=== PATIENT | female | born 1950 | race Caucasian/White ===

== ENCOUNTER 2020-04-04 14:21 | Inpatient (IN) | payer MEDICARE ==
[~2020-04-04] VITALS: Ht 152.4 cm; Wt 108.9 kg
[2020-04-13] VITALS (11 sets, daily range): BP systolic 99–157; BP diastolic 66–84; PULSE 67–90; TEMP 96.9–98
--- NOTE | 2020-04-13 06:48 | NUR ---
Patient ambulatory to room 2 accompanied by son and is awake and alert. Consents signed for exploratomy laparotomy and right nephrectomy. Patient states that she nervous about the surgery. Assisted patient with changing clothes.
[2020-04-13 07:44] LABS: BASO % 0.5 % (0.0-2.0); EOS # 0.1 (0.0-0.7); EOS % 1.8 % (0-4.0); GRAN % 65.4 % (42.2-75.2); HEMATOCRIT 38.5 % (37.0-47.0); HEMOGLOBIN 12.6 g/dl (12.5-16.0); LYMPH # 1.9 (1.2-3.4); LYMPH % 24.6 % (20.0-51.0); MEAN CELL VOLUME 87 fl (80.0-100.0); MEAN CORPUSCULAR HEMOGLOBIN 29 pg (27.0-31.0); MEAN CORPUSCULAR HGB CONC 33 g/dl (33.0-37.0); MEAN PLATELET VOLUME 9.9 fl (7.4-10.4); MONO # 0.6 (0.1-0.6); MONO % 7.6 % (1.7-9.3); PLATELET COUNT 294 K/mm3 (130-400); RED BLOOD COUNT 4.42 M/mm3 (4.10-5.30); REDCELL DISTRIBUTION WIDTH-CV 13.2 % (11.5-14.5)
--- NOTE | 2020-04-13 07:51 | NUR ---
Order for Valium 5mg po obtained and given for continued complaints of feeling nervous and anxious. Tearful. Son in room and talks with son. Siderails up x2 and call light in reach.
[2020-04-13 07:54] LABS: ALBUMIN 4.3 gm/dL (3.5-5.0); BILIRUBIN,TOTAL 0.9 mg/dL (0.0-1.0); CALCIUM 9.5 mg/dL (8.4-10.2); CREATININE, serum 1.2 (0.52-1.25); POTASSIUM 3.8 mmol/L (3.4-5.0); TOTAL PROTEIN 8.3 gm/dL (6.4-8.2)
[2020-04-13] MEDS ORDERED: PRINZIDE 25 MG-1 TAB PO (08:44)
[2020-04-13] MEDS ORDERED: ZOCOR 20MG20 MG PO (08:44)
[2020-04-13] MEDS ORDERED: K-DUR 10 MEQ T10 MEQ PO (08:45)
[2020-04-13] MEDS ORDERED: LASIX 40MG TABL40 MG PO (08:46)
[2020-04-13] MEDS ORDERED: ATARAX 25MG25 MG/TAB PO (08:47)
[2020-04-13] MEDS ORDERED: NORCO 325 MG-51 TAB PO (08:48)
[2020-04-13] MEDS ORDERED: NITROSTAT0.4 MG/TAB SL (08:49)
[2020-04-13] MEDS ORDERED: ASPIRIN 81M81 MG/TA2 PO (15:36)
--- NOTE | 2020-04-13 15:41 | NUR ---
Patient received post op. Report from Manasa. Patient drowsy. Her son visited, but has left for the day. called & update given & orders clarified. Vss on O2. Ivf per orders to Rfa. Colmenares to DD, yellow clear output. Perry drain x2 marked 1 & 2. Abdominal binder on. Midline incisions with aquacel dressing intact. Ice chips & water provided, reports dry mouth, no nausea complaints. Scds BLE.
--- NOTE | 2020-04-13 16:12 | NUR ---
Patient sleeping soundly. Vitals stable on O2. Continue to closely monitor
--- NOTE | 2020-04-13 16:48 | NUR ---
called & update given. We discussed marginal urine output
--- NOTE | 2020-04-13 19:20 | NUR ---
Patient resting in bed. She is reporting increased pain. 09/20. Bedside report to cecily Thacker to resume cares. He is giving Morphine for pain, medication was explained to pain. Patient not wanting to take pills at this time, she is nervous about nausea. Vitals remains stable. Bp elevated with pain. Patient tolerating ice chips, not interest in clear liquid. Colmenares to DD 20ml urine output. Colmenares was irrigated per , no issue with irrigation, flows easy. Bolus infusing per orders. JALEN drain to compression, documented on flowsheet. Abdomen remains rounded. midline aquacell insision dressing intact. Abd binder intact. Scds ble.
[2020-04-14 00:52] VITALS: BP 136/68; PULSE 77; TEMP 97.5
--- NOTE | 2020-04-14 02:00 | NUR ---
MD Marija called and notified continued oliguria. Urine output since 1930: 70mL yellow and concentrated. Orders recieved
--- NOTE | 2020-04-14 04:50 | NUR ---
MD Marija notified urine output since fluid bolus: 25mL. Pt reassessed, does not appear to be fluid overloaded, minimal edema, lungs clear with now crackles. Reported to MD Marija documented I&O since arrival to unit Total Intake: 4,120mL - Urine Output: 55mL No new IV fluid orders recieved, but MD Marija ordered Hemoglobin and Hemotocrit STAT Lab called to perform scheduled morning labs STAT
[2020-04-14 05:14] LABS: HEMATOCRIT 37.2 % (37.0-47.0)
[2020-04-14 05:20] VITALS: BP 121/57; PULSE 80; TEMP 97.6
--- NOTE | 2020-04-14 05:20 | NUR ---
Stable hemoglobin reported to MD Marija. No new orders recieved. MD Marija will call MD Naida to come in early to assess pt, thinks pt might be fluid volume depleted but wanting MD Naida to assess before administering more fluids. Pt asymptomatic
[2020-04-14 05:28] LABS: CALCIUM 8.1 mg/dL (8.4-10.2); CREATININE, serum 2.18 (0.52-1.25); MAGNESIUM 1.8 mg/dL (1.6-2.3); PHOSPHOROUS 6.4 mg/dL (2.5-4.5); POTASSIUM 4.7 mmol/L (3.4-5.0)
[2020-04-14 07:48] VITALS: BP 127/61; PULSE 78; TEMP 97.9
[2020-04-14 12:06] VITALS: BP 139/69; PULSE 87; TEMP 97.9
--- NOTE | 2020-04-14 12:17 | NUR ---
First visit from the match up worker. No needs right now.
--- NOTE | 2020-04-14 15:39 | NUR ---
Orthopedics Nurse met with patient and patient's son, Adan (ph#[phone]) to discuss discharge planning. Patient lives in [place], [place] with her son, Oscar who is disabled. Patient sees Dr. Concepcion for primary care and obtains medications from [facility] in [place] with no difficulties. Patient states she uses a cane at home and is normally independent with ADLS. Patient does not have Advance Directives at this time but states she is going to contact an business attorney soon to complete this. SW offered to assist with DPOA-HC during this stay, however patient declined. Patient plans to return home upon discharge with her son, Adan providing transportation. Adan is from [place] but has plans to stay with patient upon discharge to provide assistance. Adan advised he has to return to [place] for Saturday and Saturday to chart picker his daughter, who is flying in from [place] and he won't be back here in [place] until Saturday. SW asked patient who would take her home over the weekend if she discharged and patient states she won't discharge over the weekend per Dr. Lazcano. Patient has a nephrology consult ordered. SW contacted Dr. Lazcano's RN, Miki and confirmed patient will not discharge over the weekend. SW will continue to follow.
[2020-04-14 18:14] VITALS: BP 112/63; PULSE 80; TEMP 97.5
[2020-04-14 19:19] VITALS: BP 126/44; PULSE 81; TEMP 97.7
--- NOTE | 2020-04-14 19:50 | NUR ---
RECEIVED CHANGE OF SHIFT REPORT FROM DAY SHIFT NURSERADHA RN
--- NOTE | 2020-04-14 20:00 | NUR ---
PATIENT DENIES CHEST PAIN/SOA/NAUSEA AT THIS TIME. SCALES IN PLACE. IVF INFUSING WITH NO PROBLEMS. JALEN #1 [address] #[address] AND COMPRESSED.
[2020-04-15] VITALS (22 sets, daily range): BP systolic 88–161; BP diastolic 38–82; PULSE 78–109; TEMP 97.3–98.2
--- NOTE | 2020-04-15 04:17 | NUR ---
PATIENT CALLED OUT REPORTING SHE IS "BLEEDING". OBSERVED ACTIVE RED BLOODY DRAINING FROM RIGHT JALEN HV SITES. COLOR PINK. OBSERVED #1 R JALEN DRAIN WITH 35 ML OUT AND #2 LEFT JALEN HV WITH 10 ML OUT. VS TAKEN, SEE [facility] FOR VS. INFORMED BRAND SALES MANAGER.
--- NOTE | 2020-04-15 04:35 | NUR ---
INFORMED DR ARIAS OF BLOODY DRAINAGE FROM #1 JALEN DRAIN SITE WITH NO NEW ORDERS GIVEN AT TIME OF CALL.
--- NOTE | 2020-04-15 07:35 | NUR ---
notifed this am, labs ordered. Patient assisted up to the chair. Pain increased with movement. Patient assisted with hygiene. Tooth brush provided for oral cares. Clear liquid diet, denies nausea. Reports passing flatus & bowel sounds audible. abdomen soft. Perry drain to compression. drainage noted around gauze site. Midline incisions small amount of aquacell drainage noted. Colmenares to DD, urine output improved. Ivf per orders to RFA. Student nurse assisting with cares.
[2020-04-15 07:50] LABS: CREATININE, serum 2.65 (0.52-1.25); POTASSIUM 4.2 mmol/L (3.4-5.0)
--- NOTE | 2020-04-15 07:50 | NUR ---
CHANGE OF SHIFT REPORT GIVEN TO DAY SHIFT NURSELAURA RN.
--- NOTE | 2020-04-15 08:33 | NUR ---
Patient having increased pain. roxicodone given for pain, she reports she has taken pain medication in the past. 10/21, pain in her back. Kpad provided. her son at bedside. I did speak to about patient, Perry drains stripped per his request. Will continue to debbie closely.
--- NOTE | 2020-04-15 08:43 | NUR ---
rounded. Plan of care reivewed. Spoke to Marina nurse with , she is revieweing chart.
--- NOTE | 2020-04-15 10:14 | NUR ---
Supervisor Title met with patient to review discharge plan and PT recommendations which are home health vs post acute rehab. Patient states she is not willing to go anywhere for rehab as she needs to get home to her son, Oscar who is having a difficult time being apart from her. Patient is agreeable to home health services and would like a referral sent to [facility]. ERICA contacted Royal at [facility] and faxed referral. Royal will follow up with ERICA after reviewing referral as patient has a Medicare Advantage Plan. ERICA contacted patient's son, Adan and updated him on the discharge plan.
--- NOTE | 2020-04-15 11:30 | NUR ---
rounded. Abdominal binder off at this time, will be placed back on when out of bed. dietary rounded, reviewing diet
--- NOTE | 2020-04-15 12:00 | NUR ---
Marina verified okay to give Lovenox & hctz. Delayed in giving until okayed. Student nurse assisting with care
--- NOTE | 2020-04-15 13:56 | NUR ---
This nurse & student nurse attempted to get patient up at bedside. She reported the room was spinning. Feeling very faint. I&O documnted. Dr. Lazcano notifed,vitals reported. H&H ordered, also orders for Ultram obtained. Patient however not wanting to take any pills at this time. She is worried the pain medication is making her feel worse. Her pain is elevated.
[2020-04-15 14:27] LABS: HEMATOCRIT 28.3 % (37.0-47.0)
[2020-04-15 14:31] LABS: HEMOGLOBIN 8.9 g/dl (12.5-16.0)
[2020-04-15 14:34] LABS: BASO # 0.1 (0.0-0.2); BASO % 0.4 % (0.0-2.0); EOS # 0.2 (0.0-0.7); EOS % 1.2 % (0-4.0); GRAN # 12.7 (1.4-6.5); GRAN % 80.8 % (42.2-75.2); LYMPH # 1.5 (1.2-3.4); LYMPH % 9.3 % (20.0-51.0); MEAN CORPUSCULAR HEMOGLOBIN 29 pg (27.0-31.0); MEAN CORPUSCULAR HGB CONC 31 g/dl (33.0-37.0); MEAN PLATELET VOLUME 10.8 fl (7.4-10.4); MONO # 1.2 (0.1-0.6); MONO % 7.5 % (1.7-9.3); PLATELET COUNT 332 K/mm3 (130-400); RED BLOOD COUNT 3.09 M/mm3 (4.10-5.30); REDCELL DISTRIBUTION WIDTH-CV 14.5 % (11.5-14.5)
--- NOTE | 2020-04-15 14:34 | NUR ---
rounded. We disucussed patient. Multipe orders obtained. Radiology called for chest xray. Blood bank called about blood orders. Resp. called to bring patient and IS. spoke to & update given. Ivf to be stopped. Ua to be sent to lab. Pharmacy adjusted lovenox
[2020-04-15 14:35] LABS: MEAN CELL VOLUME 93 fl (80.0-100.0)
--- NOTE | 2020-04-15 15:39 | NUR ---
Patient resting in bed. She continue to feel weak, tired, SHe has complaints of dizzyness. Hypotension. Patient unit of blood started per orders & policy. Verified with Candida LEWIS. Blood infusing to Iv in right forarm @ 60ml/hr. This nurse at bedside. Will closely monitor.
[2020-04-15 16:57] LABS: PH 5 (5-8); SQUAMOUS EPITHELIAL None Seen /hpf; URINE APPEARANCE Hazy; URINE BACTERIA Rare /hpf; URINE BILIRUBIN Negative (NEGATIVE); URINE BLOOD 1+ (NEGATIVE); URINE COLOR Yellow; URINE GLUCOSE Negative (NEGATIVE); URINE KETONE Negative (NEGATIVE); URINE LEUKOCYTE ESTERASE Trace (NEGATIVE); URINE NITRATE Negative (NEGATIVE); URINE PROTEIN(semi-quant) Negative (NEGATIVE); URINE UROBILINOGEN Negative (NEGATIVE)
[2020-04-15 17:48] LABS: COLLECTION METHOD CATHETER
--- NOTE | 2020-04-15 19:20 | NUR ---
Patient resting in bed. Repositioned for comfort. Patient Blood pressure has improved. She looks more pink in her cheeks. Patient denies the need for pain medication, she is concerned about pain medication side effect. She does reports back pain, we tried lying on her right side, but that elevated pain. Patient does not like k pad. Iv to Rfa started leaking after blood transfusion. New Iv started to Lfa by Candida LEWIS. Patient reports nausea. Kaila night nurse to resume cares & gave zofran. Strict I&O kept today. JALEN drain to compression, Jalen drain stripped. New dressing to drain site. Drainge noted. Iv to INT. Colmenares to DD with marginal output.
--- NOTE | 2020-04-15 20:45 | NUR ---
Patient's blood pressure now 101/53. Patient feels dizzy and like she is going to pass out. Called Dr. Handley and got orders to transfuse another unit of blood.
--- NOTE | 2020-04-15 21:16 | NUR ---
Blood administration started at 2102 per orders. Remaining at bedside for 15 minutes. VSS. PAtient still feels light headed and dizzy.
[2020-04-16] VITALS (7 sets, daily range): BP systolic 101–146; BP diastolic 44–55; PULSE 84–111; TEMP 97.5–98.3
--- NOTE | 2020-04-16 00:17 | NUR ---
Blood transfusion finished. Patient tolerated well. VSS. Patient resting in bed sleeping off and on and seems a lot more comfortable. Blood pressure is now 101/48.
--- NOTE | 2020-04-16 02:32 | NUR ---
Patient incontinent of liquidy stool. Patient cleaned up and a full linen change was done.
--- NOTE | 2020-04-16 05:44 | NUR ---
Patient had another loose stool. Cleaned her up and repositioned her.
[2020-04-16 06:42] LABS: BASO # 0.1 (0.0-0.2); BASO % 0.3 % (0.0-2.0); EOS % 0.1 % (0-4.0); GRAN # 17.7 (1.4-6.5); GRAN % 84.3 % (42.2-75.2); HEMOGLOBIN 10.5 g/dl (12.5-16.0); LYMPH # 1.7 (1.2-3.4); MEAN CELL VOLUME 91 fl (80.0-100.0); MEAN CORPUSCULAR HEMOGLOBIN 30 pg (27.0-31.0); MEAN CORPUSCULAR HGB CONC 33 g/dl (33.0-37.0); MEAN PLATELET VOLUME 10.9 fl (7.4-10.4); MONO # 1.3 (0.1-0.6); MONO % 6.3 % (1.7-9.3); PLATELET COUNT 318 K/mm3 (130-400); RED BLOOD COUNT 3.49 M/mm3 (4.10-5.30); REDCELL DISTRIBUTION WIDTH-CV 14.6 % (11.5-14.5)
[2020-04-16 06:55] LABS: ALBUMIN 2.8 gm/dL (3.5-5.0); BILIRUBIN,TOTAL 0.9 mg/dL (0.0-1.0); CREATININE, serum 3.45 (0.52-1.25); POTASSIUM 4.3 mmol/L (3.4-5.0); TOTAL PROTEIN 5.7 gm/dL (6.4-8.2)
[2020-04-16 07:13] LABS: HEMATOCRIT 31.7 % (37.0-47.0)
--- NOTE | 2020-04-16 12:28 | NUR ---
Patient alert and oriented, answers questions appropriately. See assessment. Abdomen soft, non distended, tender to palpation. Midline abdominal incision with scant amount of drainage noted to dressing. JALEN drains to LLQ and RLQ compressed, scant amount of bloody drainage and clots noted in bulb. Colmenares catheter in place, patent to dependent drainage. Urine output low, Vicenta Handley and Severiano notified on rounds. Post op exercises reviewed with patient, verbalized understanding. Patient c/o weakness, general malaise. Unable to perform IS. No other c/o at this time.
[2020-04-17 04:22] VITALS: BP 154/63; PULSE 96; TEMP 98
--- NOTE | 2020-04-17 06:17 | NUR ---
PAtient did well throughout the shift. Scheduled tylenol for pain. 150 mls of urine output. VSS. Midline incision and JALEN drain dressing sites are clean, dry, and intact. Encouraged patient to use insentive spirometer.
[2020-04-17 06:42] LABS: BASO # 0.1 (0.0-0.2); BASO % 0.4 % (0.0-2.0); EOS # 0.2 (0.0-0.7); EOS % 0.7 % (0-4.0); GRAN # 21.8 (1.4-6.5); GRAN % 85.1 % (42.2-75.2); LYMPH # 1.7 (1.2-3.4); LYMPH % 6.6 % (20.0-51.0); MEAN CELL VOLUME 90 fl (80.0-100.0); MEAN CORPUSCULAR HGB CONC 33 g/dl (33.0-37.0); MEAN PLATELET VOLUME 10.7 fl (7.4-10.4); MONO # 1.7 (0.1-0.6); MONO % 6.5 % (1.7-9.3); PLATELET COUNT 352 K/mm3 (130-400); RED BLOOD COUNT 3.02 M/mm3 (4.10-5.30); REDCELL DISTRIBUTION WIDTH-CV 14.8 % (11.5-14.5)
[2020-04-17 06:48] LABS: ALBUMIN 2.8 gm/dL (3.5-5.0); BILIRUBIN,TOTAL 0.4 mg/dL (0.0-1.0); CALCIUM 8.4 mg/dL (8.4-10.2); CREATININE, serum 3.53 (0.52-1.25); POTASSIUM 4.2 mmol/L (3.4-5.0); TOTAL PROTEIN 5.7 gm/dL (6.4-8.2)
[2020-04-17 07:02] LABS: HEMATOCRIT 27.1 % (37.0-47.0); MEAN CORPUSCULAR HEMOGLOBIN 30 pg (27.0-31.0)
--- NOTE | 2020-04-17 07:05 | NUR ---
Dr. Handley notifed & made aware of critical wbc count. No new orders at this time, he will be in to access patient this am. We discussed vitals & patient status.
[2020-04-17 07:44] VITALS: BP 116/61; PULSE 88; TEMP 97.5
--- NOTE | 2020-04-17 09:26 | NUR ---
Patient up to chair, therapy assisted her up. Patient then used bedside commode & had a loose stool. assisted with pericares. Patient refuses tyelnol this am, not wanting to take any pills. pain to her abdomen 3/10. She denies nausea, no appetite. She is only drinking milk & taking in Ice chips. Spoke to via phone, after reviewing chart, he is wanting IVF started. NS per orders to IV in Lfa. Patient abdominal binder on while up. Perry drain x2 to compresion. Colmenares to DD, Strict I&O. Patietn deneis SOB. IS used, only able to get to 500. She denies coughing up phlem. She reports being tired & wanting to rest.
--- NOTE | 2020-04-17 09:54 | NUR ---
rounded. Orders obtained, I called electronic equipment maint tech to make sure, they are aware NO IV CONTRAST. Will continue to work on PO intake today
--- NOTE | 2020-04-17 10:54 | NUR ---
Patient has completed her oral contrast, she is now nauseated. Lindsey PRN. Patient wanting to lying down in bed, she will await until after scan completd. She reports being chilly, warm blanket provided
--- NOTE | 2020-04-17 11:32 | NUR ---
Patient to Ct scan with Florecita. Spoke to on the phone update given.
[2020-04-17 12:02] VITALS: BP 115/53; PULSE 93; TEMP 97.5
--- NOTE | 2020-04-17 12:13 | NUR ---
Patient has returned from CT scan. Pain elevated, not wanting pain medication. Requested her home atarax. Dose given. Strict I&O. Ivf per orders to Jorge L. Darrian to MARI. JALEN drain to compression.
--- NOTE | 2020-04-17 12:29 | NUR ---
NEW AQUACELL DRESSING TO MIDLINE INSISION, DISTAL PART OF INCSIONS DRAIANGE NOTED. ESTRELLITA INTACT. NEW DRAIN SPONGE TO JALEN DRAIN SITES WITH TEGADERM. PATIETN NOW JUST WANTING TO REST.
--- NOTE | 2020-04-17 13:24 | NUR ---
Ct scan resulted. Impression read to & voicemail left for .
--- NOTE | 2020-04-17 13:39 | NUR ---
Impression to Ct scan read to . We discussed I&O. Patient resting.
--- NOTE | 2020-04-17 14:40 | NUR ---
Salome forte. No new orders. Scrambled eggs ordered. po intake encouraged
[2020-04-17 15:45] VITALS: BP 134/48; PULSE 95; TEMP 97.8
--- NOTE | 2020-04-17 18:02 | NUR ---
Patient resting in bed. She did not like her scrammbled eggs. I made her a milkshake, she drank a few sips. Continue to encourage PO intake. IVF per orders. Her urine output has improved slightly. Minimal Perry drain output. Midline incision aquacell dressing CDI.
--- NOTE | 2020-04-17 19:40 | NUR ---
Patient resting in bed. She has a few bites of dinner. No appetite. Bedside report to Hannah LEWIS
[2020-04-17 20:06] VITALS: BP 111/65; PULSE 100; TEMP 98.3
[2020-04-18] VITALS: BP 115/52; PULSE 96; TEMP 98.8
[2020-04-18 04:07] VITALS: BP 127/48; PULSE 84; TEMP 97.1
--- NOTE | 2020-04-18 06:19 | NUR ---
PT SLEPT OFF AND ON OVERNIGHT. APPEARS TO BE IN PAIN, GRIMACING WHEN RESTING. ENC TO TAKE PAIN MED. AGREED TO TAKE TRAMADOL THIS AM. HAD A LARGE LIQUID STOOL IN BED X 2 THIS AM. LINENS AND CLEANED UP. JALEN DRAIN MINIMAL TO 0 DRAINAGE. DSG TO MIDLINE AND JALEN INTACT, NO DRAINAGE NOTED OVERNIGHT. REF SCD OVERNIGHT STATES THEY ARE TO HOT. NEEDES MET. LOYDA DD. IV RUNNING PER ORDER.
[2020-04-18 06:27] LABS: BASO # 0.1 (0.0-0.2); BASO % 0.4 % (0.0-2.0); EOS # 0.5 (0.0-0.7); EOS % 2.8 % (0-4.0); GRAN # 12.7 (1.4-6.5); GRAN % 78.6 % (42.2-75.2); LYMPH # 1.6 (1.2-3.4); LYMPH % 9.9 % (20.0-51.0); MEAN CELL VOLUME 92 fl (80.0-100.0); MEAN CORPUSCULAR HGB CONC 33 g/dl (33.0-37.0); MEAN PLATELET VOLUME 10.2 fl (7.4-10.4); MONO # 1.2 (0.1-0.6); MONO % 7.3 % (1.7-9.3); PLATELET COUNT 287 K/mm3 (130-400); RED BLOOD COUNT 2.51 M/mm3 (4.10-5.30); REDCELL DISTRIBUTION WIDTH-CV 15.2 % (11.5-14.5)
[2020-04-18 06:33] LABS: HEMOGLOBIN 7.6 g/dl (12.5-16.0); MEAN CORPUSCULAR HEMOGLOBIN 30 pg (27.0-31.0)
[2020-04-18 06:39] LABS: ALBUMIN 2.6 gm/dL (3.5-5.0); BILIRUBIN,TOTAL 0.4 mg/dL (0.0-1.0); CREATININE, serum 2.66 (0.52-1.25); POTASSIUM 4.1 mmol/L (3.4-5.0); TOTAL PROTEIN 5.4 gm/dL (6.4-8.2)
--- NOTE | 2020-04-18 08:00 | NUR ---
rounded this am. Plan of care reviewed. Orders received. Patient is in positive spirits this am. Reports Ultram really helped with her pain, she is wanting to take Ultram today & not wanting tylenol at this time. Patient at edge of bed, abdominal binder on. Patient was up and ambulated arounded to to sit up in chair. Walker & gaitbelt used. Breakfast Ordered, bananna & milk. We discussed the importace of PO intake. Ivf continue to Lfa, Colmenares to DD with improved outputs. Perry drain x2 removed & patient tolerated well. Midline incisions bhavik intact open to air. Will continue to monitor.
[2020-04-18 08:09] VITALS: BP 137/45; PULSE 79; TEMP 97.4
--- NOTE | 2020-04-18 12:41 | NUR ---
Patient sitting up in bed. Working on her lunch .She is taking it very slow. Ultram continues to manage her pain well. Ari lewis.
[2020-04-18 13:09] VITALS: BP 123/62; PULSE 82; TEMP 97.5
--- NOTE | 2020-04-18 14:06 | NUR ---
Patient had mandarin oranges & salad for lunch. Denies nausea. Patient ambulated to doorway. Steady on her feet with walker/gaitbelt/abdominal binder. She had some dyspnea with exertion, feels weak, but in positive spirits.
--- NOTE | 2020-04-18 14:53 | NUR ---
Customer Sales Representative met with patient to follow up on discharge plan. Patient again states she will not agree to rehab placement as she needs to get home to her adult son who is disabled. Patient states she feels like she will manage at home and has help from her other three adult children. Patient states her son Adan will be here until the , then her daughter will arrive on the to relieve Adan. After her daughter stays for a week, patient states her other son and his will come down and stay for a few days. Patient states after this, her children plan to rotate with assisting her as long as she needs. SW contacted [facility] and provided update.
[2020-04-18 16:44] VITALS: BP 135/57; PULSE 86; TEMP 97.8
--- NOTE | 2020-04-18 16:54 | NUR ---
IV to left forearm infiltrated, new IV started by Candida LEWIS. Ivf to RAC. rounded, plan of care reviewed. Patient had a loose incontinent BM. Pericare provided. She stood at bedside. Perry drain sites, gauze & tegaderm CDI. Midline bhavik intact. Colmenares to DD, urine output improved. Dinner orders. Will monitor
--- NOTE | 2020-04-18 19:00 | NUR ---
Patient had a few bites of dinner. Resting. Bedside report to Hannah
[2020-04-18 19:37] VITALS: BP 121/43; PULSE 91; TEMP 97.8
--- NOTE | 2020-04-18 22:36 | NUR ---
2100- ASSESSMENT AND VITALS COMPLETE. PT DENIES SOA, DIZZY OR LIGHTHEADED. RATES PAIN /10. REF NAN WANTS TO WAIT TILL ULTRAM DUE AT 2230. BM IN BED, LIQUID AND BROWN, XLARGE. PT DRINKING MILK ONLY THIS EVEN ENC TO DRINK WATER. SLIGHTLY EDEMTOUS TO UPPER AND LOWER EXTR. REQ TO TAKE OFF SCD FOR THE NIGHT. STATES THEY ARE TO HOT. LIGHT SHEET ON. JALEN DC TODAY, DSG C/D/I. ESTRELLITA MANAGEMENT ASSOCIATE AND CLEAN. NEEDS MET .
--- NOTE | 2020-04-18 23:47 | NUR ---
IV FLUIDS DECREASED TO 50ML/HR PER DR MARSHALL ORDER RECIEVED. INIATED AND VERIFIED. INFORMED PT. PT V/U.
[2020-04-19 00:03] VITALS: BP 108/44; PULSE 89; TEMP 98
[2020-04-19 04:10] VITALS: BP 112/44; PULSE 82; TEMP 97.6
--- NOTE | 2020-04-19 05:40 | NUR ---
PT RESTING WITHOUT INCIDENT TONIGHT. NEEDS MET. DSG C/D/I ON LEFT AND RT ABD POST DRAIN SITE. STAPLE LICENSE EXAMINER, C/D/I TO MIDLINE ABD. DID HAVE ONE EPISODE OF LOOSE SOFT BROWN STOOL IN BED. ENC TO DRINK WATER AND LESS MILK. TRAMADOL CONTROLLING PAIN, REF TYL. NEEDS MET.
[2020-04-19 07:37] LABS: MEAN CELL VOLUME 94 fl (80.0-100.0); MEAN CORPUSCULAR HGB CONC 31 g/dl (33.0-37.0); MEAN PLATELET VOLUME 9.9 fl (7.4-10.4); PLATELET COUNT 297 K/mm3 (130-400); RED BLOOD COUNT 2.41 M/mm3 (4.10-5.30); REDCELL DISTRIBUTION WIDTH-CV 15.7 % (11.5-14.5)
[2020-04-19 07:38] LABS: ALBUMIN 2.5 gm/dL (3.5-5.0); ALKALINE PHOSPHATASE 80 U/L (50-136); ANION GAP 3 mmol/L (7-16); AST,SGOT 24 U/L (15-37); BILIRUBIN,TOTAL 0.3 mg/dL (0.0-1.0); BLOOD UREA NITROGEN 65 mg/dL (7-17); CALCIUM 8.1 mg/dL (8.4-10.2); CARBON DIOXIDE 24 mmol/L (22-30); CHLORIDE 109 mmol/L (98-107); CREATININE, serum 1.89 (0.52-1.25); GLUCOSE 98 mg/dL (74-106); HEMATOCRIT 22.6 % (37.0-47.0); MEAN CORPUSCULAR HEMOGLOBIN 29 pg (27.0-31.0); POTASSIUM 4.3 mmol/L (3.4-5.0); SODIUM 136 mmol/L (137-145); TOTAL PROTEIN 5.3 gm/dL (6.4-8.2)
[2020-04-19 07:39] LABS: ALANINE AMINOTRANSFERASE < 4 U/L (4-34)
[2020-04-19 07:53] LABS: BASOPHIL 1 % (0-2); EOSINOPHIL 6 % (0-4); LYMPHOCYTE 13 % (20.0-51.0); METAMYELOCYTE 1 % (0-0); NEUTROPHILS 74 % (42.0-75.2)
[2020-04-19 07:54] LABS: ANISOCYTOSIS 1+; HYPOCHROMIA 3+; PLATELET ESTIMATE NORMAL (NORMAL)
[2020-04-19 08:00] VITALS: BP 112/56; PULSE 87; TEMP 97.7
--- NOTE | 2020-04-19 09:59 | NUR ---
Patient alert and oriented, answers questions appropriately. See assessment. Abdomen soft, non tender, non distended. Bowel sounds active x4 quads. +Flatus. +Bowel movement. Midline incision with edges well approximated, bhavik intact, no redness or drainage noted. Previous bilat LQ drain sites with dressing CDI. Colmenares catheter patent and draining clear yellow urine. No c/o at this time.
--- NOTE | 2020-04-19 10:04 | NUR ---
Jb visit; Patient thanked Design Maker for looking in on her and keeping her in Design Maker's prayers.
[2020-04-19 11:36] VITALS: BP 116/50; PULSE 84; TEMP 97
[2020-04-19 16:00] VITALS: BP 107/44; PULSE 85; TEMP 97.5
[2020-04-19 20:07] VITALS: BP 126/52; PULSE 83; TEMP 97.6
--- NOTE | 2020-04-19 21:00 | NUR ---
Pt. sitting up in bed at this time. Pt. is A&OX3, assessment complete. IV to rt. ac patent. Pt. reports pain at a 3 on pain scale at this time. Pt. would like to wait til around 2200 to take pain medication. Will give per orders. Pt. denies further needs, call light within reach.
[2020-04-20 00:58] VITALS: BP 131/41; PULSE 88; TEMP 97.6
[2020-04-20 05:21] VITALS: BP 112/53; PULSE 83; TEMP 97.8
[2020-04-20 07:34] LABS: MEAN CELL VOLUME 96 fl (80.0-100.0); MEAN CORPUSCULAR HGB CONC 31 g/dl (33.0-37.0); MEAN PLATELET VOLUME 9.6 fl (7.4-10.4); PLATELET COUNT 304 K/mm3 (130-400); RED BLOOD COUNT 2.31 M/mm3 (4.10-5.30); REDCELL DISTRIBUTION WIDTH-CV 15.9 % (11.5-14.5)
[2020-04-20 07:51] VITALS: BP 141/54; PULSE 91; TEMP 97.8
[2020-04-20 08:04] LABS: HEMATOCRIT 22.2 % (37.0-47.0); HEMOGLOBIN 6.9 g/dl (12.5-16.0); MEAN CORPUSCULAR HEMOGLOBIN 30 pg (27.0-31.0)
[2020-04-20 08:08] LABS: ALBUMIN 2.4 gm/dL (3.5-5.0); BILIRUBIN,TOTAL 0.3 mg/dL (0.0-1.0); CALCIUM 8.3 mg/dL (8.4-10.2); CREATININE, serum 1.49 (0.52-1.25); POTASSIUM 4.4 mmol/L (3.4-5.0); TOTAL PROTEIN 5.2 gm/dL (6.4-8.2)
[2020-04-20 09:09] LABS: BAND 1 % (0-10); EOSINOPHIL 5 % (0-4); LYMPHOCYTE 13 % (20.0-51.0); NEUTROPHILS 74 % (42.0-75.2); NUCLEATED RED BLOOD CELL 1 (0-6); PLATELET ESTIMATE NORMAL (NORMAL)
[2020-04-20 09:10] LABS: HYPOCHROMIA 2+
[2020-04-20 09:11] LABS: ANISOCYTOSIS 1+
--- NOTE | 2020-04-20 11:54 | NUR ---
Application Support Lead received consult from attending physician that patient may benefit from Inpatient Rehab. SW gave referral to Karen IPR Director but advised that previously, patient has not been agreeable to rehab. ERICA collaborated with RNAntonia who advised patient again advised this morning that she was returning home upon discharge. ERICA will continue to follow.
[2020-04-20 11:58] VITALS: BP 121/58; PULSE 95; TEMP 98.5
--- NOTE | 2020-04-20 12:47 | NUR ---
Patient alert and oriented, answers questions appropriately. See assessment. Abdomen soft, non tender, non distended. Bowel sounds active x4 quads. +Flatus. +Bowel movement. Midline incision to abdomen with edges well approximated, bhavik intact. Post op exercises reviewed with patient. No c/o at this time.
[2020-04-20 16:00] VITALS: BP 137/51; PULSE 89; TEMP 98.1
--- NOTE | 2020-04-20 19:55 | NUR ---
RECEIVED CHANGE OF SHIFT REPORT FROM DAY SHIFT NURSE. PATIENT UP INDEPENDENTLY IN ROOM. REPORTS ABD DISCOMFORT BUT HAS HARD STOOL PASSED TODAY. ENCOURAGED PATIENT TO INCREASE ORAL FLUID INTAKE IF TOLERATED. REFUSED SCD AT THIS TIME DUE TO BEING INDEPENDENT IN ROOM. SEE eMAR FOR MEDS GIVEN. INT IN PLACE TO RFA.
[2020-04-20 21:31] VITALS: BP 131/64; PULSE 98; TEMP 97.9
[2020-04-21 00:08] VITALS: BP 134/89; PULSE 95; TEMP 97.8; TEMP 9738
--- NOTE | 2020-04-21 02:43 | NUR ---
REQUESTED AND GIVEN TRAMADOL ALONG WITH TYLENOL, SEE eMAR FOR MEDS GIVEN. REPORTS TYLENOL "TAKES TOO LONG TO WORK"
[2020-04-21 03:51] VITALS: BP 121/53; PULSE 88; TEMP 98
[2020-04-21 06:55] LABS: ALANINE AMINOTRANSFERASE < 4 U/L (4-34); ALBUMIN 2.5 gm/dL (3.5-5.0); ALKALINE PHOSPHATASE 73 U/L (50-136); ANION GAP 3 mmol/L (7-16); AST,SGOT 26 U/L (15-37); BILIRUBIN,TOTAL 0.5 mg/dL (0.0-1.0); BLOOD UREA NITROGEN 44 mg/dL (7-17); CALCIUM 8.4 mg/dL (8.4-10.2); CARBON DIOXIDE 26 mmol/L (22-30); CHLORIDE 110 mmol/L (98-107); CREATININE, serum 1.32 (0.52-1.25); GLUCOSE 104 mg/dL (74-106); POTASSIUM 4.3 mmol/L (3.4-5.0); SODIUM 139 mmol/L (137-145); TOTAL PROTEIN 5.4 gm/dL (6.4-8.2)
[2020-04-21 06:56] LABS: MEAN CELL VOLUME 96 fl (80.0-100.0); MEAN CORPUSCULAR HGB CONC 31 g/dl (33.0-37.0); MEAN PLATELET VOLUME 9.5 fl (7.4-10.4); PLATELET COUNT 331 K/mm3 (130-400); RED BLOOD COUNT 2.37 M/mm3 (4.10-5.30); REDCELL DISTRIBUTION WIDTH-CV 15.9 % (11.5-14.5)
[2020-04-21 07:01] LABS: HEMATOCRIT 22.7 % (37.0-47.0); HEMOGLOBIN 7.1 g/dl (12.5-16.0); MEAN CORPUSCULAR HEMOGLOBIN 30 pg (27.0-31.0)
[2020-04-21 07:34] LABS: EOSINOPHIL 2 % (0-4); LYMPHOCYTE 15 % (20.0-51.0); METAMYELOCYTE 1 % (0-0); NEUTROPHILS 78 % (42.0-75.2)
[2020-04-21 07:36] LABS: PLATELET ESTIMATE NORMAL (NORMAL)
[2020-04-21 07:37] LABS: ANISOCYTOSIS 1+; HYPOCHROMIA 2+
--- NOTE | 2020-04-21 07:40 | NUR ---
CHANGE OF SHIFT REPORT GIVEN TO DAY SHIFT NURSE, MAGGIE LEWIS.
--- NOTE | 2020-04-21 08:00 | NUR ---
Patient in bed resting. Alert and oriented x 3. Assessment complete. Midline incision with bhavik intact. LLQ previous JALEN site with edges well approximated. RLQ previous JALEN site with bloody drainage present, gauze and tegaderm dressing applied. Patient up ambulating with walker and SBA. Denies needs at this time.
[2020-04-21] MEDS ORDERED: ULTRAM 50MG TAB50 MG PO (08:06)
[2020-04-21 08:12] VITALS: BP 152/60; PULSE 84; TEMP 97.7
--- NOTE | 2020-04-21 11:40 | NUR ---
Discharge education provided to patient. Educated on when to call provider and all follow up appointments. Patient educated on signs and symptoms of infection and activity restrictions. Patient educated on new medication and medication safety. INT discontinued by RN student. All questions answered. Denies further needs at this time.
--- NOTE | 2020-04-21 12:00 | NUR ---
Patient out by wheelchair with surgical staff and family.
--- NOTE | 2020-04-21 16:50 | NUR ---
Patient is ready to discharge home today with [facility]. ERICA contacted Royal at [facility] and faxed clinical updates/discharge orders. ERICA met with patient who advised she has been working with her primary care physician, Dr. Concepcion on getting a hospital bed. ERICA contacted Dr. Concepcion's office and left a message. Dr. Concepcion is out of the office today but will follow up at patient's upcoming appointment.
== END 2020-04-21 12:00 | disposition home health service (06) | DRG 657 ==
LOC: SURG 04-13 06:13 → INPTSU 04-13 06:13 → SURG 04-13 09:15
PROVIDERS: Internal Medicine Nephrology; Urology; ADMIT Surgery
PROC: 0TT00ZZ Resection of Right Kidney, Open Approach (ICD-10-PCS; principal; 2020-04-13 09:15)
PROC: 0WUF0JZ Supplement Abdominal Wall with Synthetic Substitute, Open Approach (ICD-10-PCS; 2020-04-13 09:15)
DX: C64.1 Malignant neoplasm of right kidney, except renal pelvis (principal); N17.9 Acute kidney failure, unspecified; D62 Acute posthemorrhagic anemia; K43.2 Incisional hernia without obstruction or gangrene; I10 Essential (primary) hypertension; E78.5 Hyperlipidemia, unspecified; R06.00 Dyspnea, unspecified; I95.81 Postprocedural hypotension; D72.829 Elevated white blood cell count, unspecified; Z90.49 Acquired absence of other specified parts of digestive tract; Z85.828 Personal history of other malignant neoplasm of skin; Z88.6 Allergy status to analgesic agent; Z88.0 Allergy status to penicillin
CPT/HCPCS: A4314; A9284; A9503; C1781; J0330; J0690; J1100; J1170; J1650; J1940; J2250; J2270; J2405; J2795; J3010; J7030; J7040; J7050; J7120; P9016

== ENCOUNTER → 2020-04-11 | Outpatient (CLI) | payer MEDICARE ==
[~2020-04-11] MED LIST: AMOXICILLIN 50500 MG PO; ASPIRIN 81M81 MG/TA2 PO; ATARAX 25MG25 MG/TAB PO; CEPHALEXIN500 M1 PO; K-DUR 10 MEQ T10 MEQ PO; LASIX 40MG TABL40 MG PO; NITROSTAT0.4 MG/TAB SL; NORCO 325 MG-51 TAB PO; PRINZIDE 25 MG-1 TAB PO; ULTRAM 50MG TAB50 MG PO; ZOCOR 20MG20 MG PO
== END ==
LOC: COL.RAD 09:01
DX: C64.1 Malignant neoplasm of right kidney, except renal pelvis (principal)
CPT/HCPCS: A9503

== ENCOUNTER → 2020-06-16 | Outpatient (CLI) | payer MEDICARE | LOC: ZCOL.LAB 16:22 | DX: S30.92XA Unspecified superficial injury of abdominal wall, initial encounter (principal) ==

== ENCOUNTER → 2020-06-30 | Outpatient (CLI) | payer MEDICARE | LOC: COL.LAB 15:44 | DX: Z01.89 Encounter for other specified special examinations (principal) ==

== ENCOUNTER 2020-07-05 11:34 | Day surgery (SDC) | payer MEDICARE ==
[~2020-07-05] VITALS: Ht 152.4 cm; Wt 100.8 kg
[~2020-07-05 11:34] MED LIST changes: -AMOXICILLIN 50500 MG PO; -CEPHALEXIN500 M1 PO
[2020-07-05 13:02] VITALS: BP 158/92; PULSE 71; TEMP 98.5
[2020-07-05] MEDS ORDERED: CEPHALEXIN500 M1 PO (13:23)
[2020-07-05] MEDS ORDERED: PRINZIDE 25 MG-1 TAB PO (13:24)
[2020-07-05] MEDS ORDERED: AMOXICILLIN 50500 MG PO (14:08)
[2020-07-05 14:40] VITALS: BP 167/68; PULSE 64; TEMP 98.6
--- NOTE | 2020-07-05 14:40 | NUR ---
The patient arrived back to [place] [facility] from the recovery room. The patient appears alert and oriented and denies any pain or nausea at this time. Post operative vital signs were started at this time. The patient has a gauze dressing to her abdomen appears clean, dry and intact. The patient has oxygen in place at 2L per nasal cannula. The patient agrees to try some ice water and strawberry jello. Call light is within reach. Will continue to monitor the patient.
[2020-07-05 14:48] VITALS: TEMP 98.6
[2020-07-05 14:55] VITALS: BP 152/71; PULSE 63
--- NOTE | 2020-07-05 14:55 | NUR ---
The patient appears to be tolerating the food and drink well. The patient's oxygen was weaned to 1L per nasal cannula at this time. Vital signs appear stable. Will continue to monitor the patient.
[2020-07-05 15:10] VITALS: BP 147/68; PULSE 63
--- NOTE | 2020-07-05 15:10 | NUR ---
The patient was weaned off oxygen and placed on room air at this time. The patient appears to be tolerating it well. The patient continues to deny any pain or nausea at this time. The patient's son was called and found to be in the waiting room so he was brought back to be at her bedside. Call light remains within reach. Will continue to monitor the patient.
[2020-07-05 15:25] VITALS: BP 162/76; PULSE 61
--- NOTE | 2020-07-05 15:25 | NUR ---
The patient ambulated to the bathroom with the stand by assistance of one nurse and appeared to tolerate the activity well. The patient voided without difficulty and voices a desire to be discharged home.
--- NOTE | 2020-07-05 16:08 | NUR ---
Dicharge instructions were reviewed with the patient at this time. She verbalized understanding and has no questions for the nurse at this time. The patient's IV to her left hand was removed and a pressure dressing was applied to the site. The patient is dressed and ready to be escorted out. The patient has sent home with dressing change supplies including saline syringes, 4x4s and medipore tape.
--- NOTE | 2020-07-05 16:25 | NUR ---
The patient was escorted out via wheelchair to a private vehicle by JOSHUA Jacques. The patient's belongings and discharge paperwork were sent with her. The patient's son is present to drive her home.
== END 2020-07-05 16:25 | disposition home or self-care (01) ==
LOC: SDCO 11:34
DX: M79.81 Nontraumatic hematoma of soft tissue (principal); C64.1 Malignant neoplasm of right kidney, except renal pelvis; E78.5 Hyperlipidemia, unspecified; E78.00 Pure hypercholesterolemia, unspecified; I11.0 Hypertensive heart disease with heart failure; I50.9 Heart failure, unspecified; Z79.899 Other long term (current) drug therapy; Z79.82 Long term (current) use of aspirin; Z85.820 Personal history of malignant melanoma of skin
CPT/HCPCS: J0690; J1100; J1885; J2405; J2704; J3010; J7120